=== PATIENT | female | born 1945 | race Caucasian/White ===

== ENCOUNTER 2021-09-12 10:39 | Emergency (ER) | payer MEDICARE ==
[~2021-09-12] VITALS: Ht 170.2 cm; Wt 73.0 kg
[~2021-09-12 10:39] MED LIST: APIX5TAB PO; BUSP5TAB20 PO; CARV25 PO; MELA5TAB40 PO; SACU1TAB4 PO
[2021-09-12 12:00] VITALS: BP 146/88
== END 2021-09-12 13:38 | disposition home or self-care (01) ==
LOC: EMS 10:40
DX: I11.0 Hypertensive heart disease with heart failure (principal); I50.9 Heart failure, unspecified; I48.91 Unspecified atrial fibrillation; F41.9 Anxiety disorder, unspecified; F31.9 Bipolar disorder, unspecified; E78.00 Pure hypercholesterolemia, unspecified; E03.9 Hypothyroidism, unspecified; G20 Parkinson's disease; Z86.2 Personal history of diseases of the blood and blood-forming organs and certain disorders involving the immune mechanism
CPT/HCPCS: 99283

== ENCOUNTER 2022-05-29 10:00 | Emergency (ER) | payer MEDICARE ==
[~2022-05-29] VITALS: Ht 172.7 cm; Wt 75.0 kg
[2022-05-29 10:09] VITALS: BP 150/92
[2022-05-29 11:07] LABS: BASOPHILS % (AUTO) 0.8 % (0.0-2.0); EOSINOPHILS % (AUTO) 1.1 % (1.0-6.0); HEMATOCRIT 38.8 % (36-46); LYMPHOCYTES # (AUTO) 1.9 K/uL (1.0-4.8); LYMPHOCYTES % (AUTO) 31.3 % (22.0-44.0); MEAN CORPUSCULAR HEMOGLOBIN 32.8 pg (26.0-34.0); MEAN CORPUSCULAR HGB CONC 33.4 G/dL (31.0-37.0); MEAN CORPUSCULAR VOLUME 98 fL (80-100); MONOCYTES # (AUTO) 0.4 K/uL (0.1-1.0); MONOCYTES % (AUTO) 7.1 % (2.0-9.0); NEUTROPHILS # (AUTO) 3.6 K/uL (1.8-7.7); NEUTROPHILS % (AUTO) 59.7 % (40.0-70.0); PLATELET COUNT (AUTO) 282 K/uL (150-450); RED BLOOD CELL COUNT(AUTO) 3.95 MIL/uL (4.00-5.20); RED CELL DISTRIBUTION WIDTH 12.5 % (11.5-14.5)
[2022-05-29 11:16] LABS: ANION GAP 5 mmol/L (8-16); CALCIUM, TOTAL 8.8 mg/dL (8.8-10.5); CARBON DIOXIDE 31 mmol/L (22-29); CHLORIDE 101 mmol/L (98-107); CREATININE 0.75 mg/dL (0.60-1.30); GLUCOSE,RANDOM 89 mg/dL (70-110); POTASSIUM 4.6 mmol/L (3.5-5.1); SODIUM SERUM 137 mmol/L (136-145); UREA NITROGEN, BLOOD 11 mg/dL (7-18)
[2022-05-29 11:17] LABS: GLOMERULAR FILTR. RATE CALC > 60 mL/min (>60)
[2022-05-29 11:20] LABS: COVID AG,FIA SOURCE NASOPHARYNGEAL
[2022-05-29 11:21] LABS: ALANINE AMINOTRANSFERASE 18 U/L (12-78); ALBUMIN 3.4 g/dL (3.4-5.0); ALKALINE PHOSPHATASE 105 U/L (46-116); ASPARTATE AMINOTRANSFERASE 18 U/L (15-37); B-TYPE NATRIURETIC PEPTIDE 414 pg/mL (0-100); BILIRUBIN,TOTAL 0.3 mg/dL (0.1-1.0); TOTAL PROTEIN, SERUM 7.4 g/dL (6.4-8.2)
[2022-05-29 11:47] LABS: INFLUENZA TYPE A NEGATIVE FOR TYPE A (NEGATIVE); INFLUENZA TYPE B NEGATIVE FOR TYPE B (NEGATIVE)
[2022-05-29] MEDS ORDERED: PROM6.2514 PO (12:22)
== END 2022-05-29 13:19 | disposition home or self-care (01) ==
LOC: EMS 10:11
DX: R06.00 Dyspnea, unspecified (principal); J40 Bronchitis, not specified as acute or chronic; I48.91 Unspecified atrial fibrillation; F41.9 Anxiety disorder, unspecified; F31.9 Bipolar disorder, unspecified; I10 Essential (primary) hypertension; Z20.822 Contact with and (suspected) exposure to COVID-19; Z98.51 Tubal ligation status
CPT/HCPCS: 71045; 80053; 83880; 84484; 85025; 87420; 87804; 93005; 99285; 36415-L1; 36415-TC